=== PATIENT | female | born 1980 | race Caucasian/White ===

== ENCOUNTER 2023-05-22 17:12 | Inpatient (IN) | payer BC ==
[~2023-05-22] VITALS: Ht 160 cm; Wt 59.0 kg
[2023-05-22 17:49] VITALS: BP 121/76; PULSE 81; RESP 18; TEMP 99.2; O2SAT 100
[2023-05-22 18:36] LABS: BASOPHILS % (AUTO) 0.1 % (0.0-2.0); EOSINOPHILS % (AUTO) 0.1 % (0.0-4.0); HEMATOCRIT 41.3 % (36-48); HEMOGLOBIN 14.2 g/dL (12.0-16.0); LYMPHOCYTES # (AUTO) 2.7 K/uL (2.5-16.5); LYMPHOCYTES % (AUTO) 11.6 % (20.5-51.1); MEAN CORPUSCULAR HEMOGLOBIN 30 pg (27-31); MEAN CORPUSCULAR HGB CONC 34 g/dL (33-37); MEAN CORPUSCULAR VOLUME 88.3 fL (80-94); MONOCYTES # (AUTO) 1.3 K/uL (0.8-1.0); MONOCYTES % (AUTO) 5.6 % (1.7-9.3); NEUTROPHILS # (AUTO) 19.2 K/uL (1.8-7.7); NEUTROPHILS % (AUTO) 82.6 % (42.2-75.2); PLATELET COUNT (AUTO) 349 K/uL (140-450); RED BLOOD CELL COUNT(AUTO) 4.67 MIL/uL (4.20-5.40); RED CELL DISTRIBUTION WIDTH 13.7 % (11.6-13.7); WHITE BLOOD COUNT (AUTO) 23.2 K/uL (4.8-10.8)
[2023-05-22 18:45] LABS: ANION GAP 12.4 (8-16); CALCIUM 9.2 mg/dL (8.5-10.1); CARBON DIOXIDE 30.7 mmol/L (21-32); CREATININE 0.7 mg/dL (0.6-1.3); POTASSIUM 3.1 mmol/L (3.5-5.1)
[2023-05-22 18:57] LABS: BILIRUBIN,DIRECT 0.3 mg/dL (0.0-0.3)
[2023-05-22 19:32] LABS: TOTAL BILIRUBIN 0.6 mg/dL (0.0-1.0)
[2023-05-22] MEDS ORDERED: ONDANSETRON 4 MG/2 ML VIAL IVP ONE (19:40)
[2023-05-22] MEDS ORDERED: MORPHINE SULFATE 4 MG/ML SYR IVP ONE (19:40)
[2023-05-22] MEDS ORDERED: NACL 0.9% 1,000 ML IV ONE ×2 (19:40→21:10)
[2023-05-22] MEDS ORDERED: MORPHINE SULFATE 4 MG/ML SYR ONE (20:54)
[2023-05-22] MEDS ORDERED: ONDANSETRON 4 MG/2 ML VIAL ONE (20:55)
[2023-05-22] MEDS ORDERED: ACETAMINOPHEN 325 MG TAB PO PRN (21:20)
[2023-05-22] MEDS ORDERED: ONDANSETRON 4 MG/2 ML VIAL IVP PRN (21:20)
[2023-05-22] MEDS ORDERED: MAG SULF 2000 MG/WATER PREMIX 50 ML IV PRN (21:20)
[2023-05-22] MEDS ORDERED: LORazepam 2 MG/ML VIAL IVP PRN (21:20)
[2023-05-22] MEDS ORDERED: DOCUSATE SODIUM 100 MG GELCAP PO PRN (21:20)
[2023-05-22] MEDS ORDERED: MORPHINE SULFATE 2 MG/ML SYR IVP PRN (21:20)
[2023-05-22] MEDS ORDERED: ENALAPRILAT 2.5 MG/2 ML VIAL IVP PRN (21:25)
[2023-05-22 22:41] VITALS: O2SAT 99
[2023-05-23] VITALS (10 sets, daily range): BP systolic 144; BP diastolic 82; PULSE 74; RESP 18; TEMP 97.6; O2SAT 96–98
[2023-05-23] MEDS ORDERED: DEXTROSE 50% 50 ML SYR IVP PRN (02:25)
[2023-05-23] MEDS: BLOOD GLUCOSE MONITORING 1 DEV DEV FS SCH ×12 (03:25→16:58)
[2023-05-23 03:28] LABS: BLOOD GAS BASE EXCESS -1.1 mmol/L (-2.0-2.0); BLOOD GAS HCO3 23.4 mmol/L (22-26); BLOOD GAS PCO2 38.6 mmHg (35-45); BLOOD GAS PO2 74.7 mmHg (75-100)
[2023-05-23 03:29] LABS: BLOOD GAS O2 SAT% 95.3 % (92.0-98.5)
[2023-05-23 04:45] LABS: PHOSPHORUS 4.3 mg/dL (2.5-4.9)
[2023-05-23] MEDS: INSULIN LISPRO SLIDING SCALE 100 UNITS/ML VIAL SUBQ PRN ×2 (04:56→14:15)
[2023-05-23 05:00] LABS: ANION GAP 12.4 (8-16); CALCIUM 8.1 mg/dL (8.5-10.1); CARBON DIOXIDE 26.6 mmol/L (21-32); CREATININE 0.5 mg/dL (0.6-1.3)
[2023-05-23 05:03] LABS: FREE T4 (FREE THYROXINE) 1.05 ng/dL (0.76-1.46); THYROID STIMULATING HORMONE 0.21 uIU/mL (0.34-3.74)
[2023-05-23] MEDS ORDERED: LISI2.5T12 PO (06:50)
[2023-05-23] MEDS ORDERED: SYN.05 PO (06:50)
[2023-05-23] MEDS ORDERED: NACL 0.9% 1,000 ML IV SCH (08:40)
[2023-05-23] MEDS ORDERED: POTASSIUM CHLORIDE 20 MEQ in LACTATED RINGERS 1,000 ML IV SCH (13:40)
[2023-05-23 14:13] LABS: ALBUMIN 3.3 g/dL (3.4-5.0); BILIRUBIN,DIRECT 0.1 mg/dL (0.0-0.3); TOTAL BILIRUBIN 0.6 mg/dL (0.0-1.0); TOTAL PROTEIN, SERUM 7.6 g/dL (6.4-8.2)
[2023-05-23] MEDS: LACTATED RINGERS 1,000 ML IV SCH ×2 (14:36→21:16)
[2023-05-23] MEDS ORDERED: PIPERACILLIN/TAZOBACTAM 3.375 GM VIAL IV ONE (21:26)
[2023-05-23] MEDS: FAMOTIDINE 20 MG/2 ML VIAL IV SCH (21:28)
[2023-05-23] MEDS: PIPERACILLIN/TAZOBACTAM 3.375 GM in DEXTROSE 5% 50 ML IV SCH (21:29)
[2023-05-24 04:00] VITALS: BP 136/78; PULSE 74; RESP 16; TEMP 97.1; O2SAT 96
[2023-05-24] MEDS: LACTATED RINGERS 1,000 ML IV SCH ×3 (04:19→11:24)
[2023-05-24] MEDS ORDERED: PIPERACILLIN/TAZOBACTAM 3.375 GM VIAL IV ONE (05:14)
[2023-05-24] MEDS: PIPERACILLIN/TAZOBACTAM 3.375 GM in DEXTROSE 5% 50 ML IV SCH ×3 (05:29→20:51)
[2023-05-24 06:36] LABS: BASOPHILS % (AUTO) 0.2 % (0.0-2.0); EOSINOPHILS # (AUTO) 0.1 K/uL (0-0.4); EOSINOPHILS % (AUTO) 0.6 % (0.0-4.0); HEMATOCRIT 35.1 % (36-48); HEMOGLOBIN 11.9 g/dL (12.0-16.0); LYMPHOCYTES # (AUTO) 2.6 K/uL (2.5-16.5); LYMPHOCYTES % (AUTO) 22.6 % (20.5-51.1); MEAN CORPUSCULAR HEMOGLOBIN 30 pg (27-31); MEAN CORPUSCULAR HGB CONC 34 g/dL (33-37); MEAN CORPUSCULAR VOLUME 89.1 fL (80-94); MONOCYTES # (AUTO) 0.7 K/uL (0.8-1.0); MONOCYTES % (AUTO) 6.3 % (1.7-9.3); NEUTROPHILS # (AUTO) 8.2 K/uL (1.8-7.7); NEUTROPHILS % (AUTO) 70.3 % (42.2-75.2); PLATELET COUNT (AUTO) 264 K/uL (140-450); RED BLOOD CELL COUNT(AUTO) 3.94 MIL/uL (4.20-5.40); RED CELL DISTRIBUTION WIDTH 13.9 % (11.6-13.7); WHITE BLOOD COUNT (AUTO) 11.6 K/uL (4.8-10.8)
[2023-05-24 07:26] LABS: ALBUMIN 2.8 g/dL (3.4-5.0); ANION GAP 12.3 (8-16); CALCIUM 8.1 mg/dL (8.5-10.1); CREATININE 0.3 mg/dL (0.6-1.3); POTASSIUM 3.3 mmol/L (3.5-5.1); TOTAL BILIRUBIN 1.1 mg/dL (0.0-1.0)
[2023-05-24 08:00] VITALS: BP 133/75; PULSE 85; RESP 18; TEMP 98; O2SAT 98
[2023-05-24] MEDS: lisinopriL 5 MG TAB PO SCH (08:37)
[2023-05-24] MEDS: FAMOTIDINE 20 MG/2 ML VIAL IV SCH ×2 (08:38→20:50)
[2023-05-24] MEDS ORDERED: ENOXAPARIN 40 MG/0.4 ML SYR SUBQ SCH (09:00)
[2023-05-24] MEDS ORDERED: DEXTROSE 50% 50 ML SYR IVP PRN (10:55)
[2023-05-24] MEDS: POTASSIUM CHLORIDE 10 MEQ TABER PO PRN (10:57)
[2023-05-24] MEDS: BLOOD GLUCOSE MONITORING 1 DEV DEV FS SCH ×3 (11:30→20:15)
[2023-05-24] MEDS: INSULIN LISPRO SLIDING SCALE 100 UNITS/ML VIAL SUBQ PRN (12:24)
[2023-05-24 14:39] LABS: HEMOGLOBIN A1C 6.5 % (4.8-5.6)
[2023-05-24 16:00] VITALS: BP 128/68; PULSE 78; RESP 18; TEMP 98.5; O2SAT 98
[2023-05-24 20:00] VITALS: BP 104/60; PULSE 85; RESP 18; TEMP 98.2; O2SAT 96
[2023-05-25] MEDS: LACTATED RINGERS 1,000 ML IV SCH ×2 (02:50→22:08)
[2023-05-25 04:00] VITALS: BP 112/59; PULSE 84; RESP 18; TEMP 97.2; O2SAT 94
[2023-05-25] MEDS: PIPERACILLIN/TAZOBACTAM 3.375 GM in DEXTROSE 5% 50 ML IV SCH ×3 (04:55→22:06)
[2023-05-25] MEDS: BLOOD GLUCOSE MONITORING 1 DEV DEV FS SCH ×4 (06:34→21:50)
[2023-05-25 07:45] LABS: BASOPHILS # (AUTO) 0.1 K/uL (0.00-0.22); BASOPHILS % (AUTO) 0.5 % (0.0-2.0); EOSINOPHILS # (AUTO) 0.1 K/uL (0-0.4); EOSINOPHILS % (AUTO) 0.7 % (0.0-4.0); HEMATOCRIT 32.1 % (36-48); HEMOGLOBIN 10.8 g/dL (12.0-16.0); LYMPHOCYTES # (AUTO) 2.5 K/uL (2.5-16.5); MEAN CORPUSCULAR HEMOGLOBIN 30 pg (27-31); MEAN CORPUSCULAR HGB CONC 34 g/dL (33-37); MEAN CORPUSCULAR VOLUME 89.4 fL (80-94); MONOCYTES # (AUTO) 0.9 K/uL (0.8-1.0); NEUTROPHILS # (AUTO) 9.1 K/uL (1.8-7.7); NEUTROPHILS % (AUTO) 71.8 % (42.2-75.2); PLATELET COUNT (AUTO) 267 K/uL (140-450); RED BLOOD CELL COUNT(AUTO) 3.59 MIL/uL (4.20-5.40); RED CELL DISTRIBUTION WIDTH 13.3 % (11.6-13.7); WHITE BLOOD COUNT (AUTO) 12.7 K/uL (4.8-10.8)
[2023-05-25 07:48] LABS: ALBUMIN 2.8 g/dL (3.4-5.0); ANION GAP 14.6 (8-16); CALCIUM 8.7 mg/dL (8.5-10.1); CARBON DIOXIDE 24.9 mmol/L (21-32); CREATININE 0.3 mg/dL (0.6-1.3); POTASSIUM 3.5 mmol/L (3.5-5.1); TOTAL PROTEIN, SERUM 6.3 g/dL (6.4-8.2)
[2023-05-25 08:00] VITALS: PULSE 85; RESP 18; O2SAT 98
[2023-05-25] MEDS: FAMOTIDINE 20 MG/2 ML VIAL IV SCH ×2 (08:19→22:03)
[2023-05-25] MEDS: lisinopriL 5 MG TAB PO SCH (08:19)
[2023-05-25 10:19] LABS: T4 (THYROXINE) 13.3 ug/dL (4.5 - 12.0)
[2023-05-25 16:00] VITALS: BP 110/69; PULSE 75; RESP 18; TEMP 98; O2SAT 96
[2023-05-25 18:17] VITALS: O2SAT 97
[2023-05-25 20:00] VITALS: PULSE 78; RESP 18; O2SAT 97
[2023-05-26] VITALS: BP 110/69; PULSE 78; RESP 18; TEMP 98; O2SAT 97
[2023-05-26] MEDS: ZOLPIDEM 10 MG TAB PO PRN (01:55)
[2023-05-26] MEDS: PIPERACILLIN/TAZOBACTAM 3.375 GM in DEXTROSE 5% 50 ML IV SCH ×3 (05:05→22:27)
[2023-05-26 06:23] LABS: BASOPHILS % (AUTO) 0.3 % (0.0-2.0); EOSINOPHILS # (AUTO) 0.2 K/uL (0-0.4); EOSINOPHILS % (AUTO) 1.3 % (0.0-4.0); HEMATOCRIT 30.2 % (36-48); HEMOGLOBIN 10.3 g/dL (12.0-16.0); LYMPHOCYTES # (AUTO) 2.8 K/uL (2.5-16.5); LYMPHOCYTES % (AUTO) 24.3 % (20.5-51.1); MEAN CORPUSCULAR HEMOGLOBIN 30 pg (27-31); MEAN CORPUSCULAR HGB CONC 34 g/dL (33-37); MEAN CORPUSCULAR VOLUME 89.1 fL (80-94); MONOCYTES # (AUTO) 0.8 K/uL (0.8-1.0); MONOCYTES % (AUTO) 6.8 % (1.7-9.3); NEUTROPHILS # (AUTO) 7.6 K/uL (1.8-7.7); NEUTROPHILS % (AUTO) 67.3 % (42.2-75.2); PLATELET COUNT (AUTO) 259 K/uL (140-450); RED BLOOD CELL COUNT(AUTO) 3.39 MIL/uL (4.20-5.40); RED CELL DISTRIBUTION WIDTH 13.3 % (11.6-13.7); WHITE BLOOD COUNT (AUTO) 11.4 K/uL (4.8-10.8)
[2023-05-26] MEDS: BLOOD GLUCOSE MONITORING 1 DEV DEV FS SCH ×4 (06:34→22:29)
[2023-05-26 06:52] LABS: ALBUMIN 2.7 g/dL (3.4-5.0); ANION GAP 11.3 (8-16); CALCIUM 8.3 mg/dL (8.5-10.1); CARBON DIOXIDE 27.1 mmol/L (21-32); CREATININE 0.4 mg/dL (0.6-1.3); POTASSIUM 3.4 mmol/L (3.5-5.1); TOTAL BILIRUBIN 0.7 mg/dL (0.0-1.0); TOTAL PROTEIN, SERUM 7.1 g/dL (6.4-8.2)
[2023-05-26 06:55] LABS: INR 0.99 (0.8-1.2); PARTIAL THROMBOPLASTIN TIME 29.9 secs (22-35.6); PROTHROMBIN TIME 10.4 secs (10.8-13.4)
[2023-05-26 08:00] VITALS: BP 118/73; PULSE 68; PULSE 76; RESP 18; TEMP 98.7; O2SAT 97; O2SAT 98
[2023-05-26] MEDS: FAMOTIDINE 20 MG/2 ML VIAL IV SCH ×2 (08:49→22:27)
[2023-05-26] MEDS: lisinopriL 5 MG TAB PO SCH (08:59)
[2023-05-26] MEDS ORDERED: BUPIVACAINE-MPF 0.5% 10 ML VIAL INJ ONE (12:32)
[2023-05-26] MEDS ORDERED: LIDOCAINE/EPI 1% 1:100000 20 ML VIAL INJ ONE (12:32)
[2023-05-26] MEDS ORDERED: MIDAZOLAM 2 MG/2 ML VIAL ONE (12:52)
[2023-05-26] MEDS ORDERED: SUCCINYLCHOLINE CHLORIDE 200 MG/10 ML VIAL IVP ONE (12:53)
[2023-05-26] MEDS ORDERED: fentaNYL citrate 0.05 MG/ML VIAL ONE ×2 (12:53→14:31)
[2023-05-26] MEDS ORDERED: DEXAMETHASONE 4 MG/ML VIAL ONE (12:54)
[2023-05-26] MEDS ORDERED: PROPOFOL 200 MG/20 ML VIAL IV ONE (12:54)
[2023-05-26] MEDS ORDERED: ROCURONIUM 50 MG/5 ML VIAL IV ONE (12:54)
[2023-05-26] MEDS ORDERED: ONDANSETRON 4 MG/2 ML VIAL ONE (12:54)
[2023-05-26] MEDS ORDERED: DESFLURANE 240 ML BTL INH ONE (13:41)
[2023-05-26] MEDS ORDERED: ceFAZolin 1,000 MG VIAL ONE ×2 (14:12)
[2023-05-26] MEDS ORDERED: SUGAMMADEX SODIUM 200 MG/2 ML VIAL IV ONE (14:47)
[2023-05-26] MEDS ORDERED: ACETAMINOPHEN 100 ML IV ONE (15:04)
[2023-05-26] MEDS ORDERED: HYDROmorphone 1 MG/ML AMP IVP PRN (15:15)
[2023-05-26] MEDS ORDERED: ONDANSETRON 4 MG/2 ML VIAL IVP PRN (15:15)
[2023-05-26] MEDS ORDERED: MEPERIDINE 25 MG/ML SYR IVP PRN (15:15)
[2023-05-26] MEDS ORDERED: LACTATED RINGERS 1,000 ML IV SCH (15:15)
[2023-05-26] MEDS ORDERED: ACETAMINOPHEN 100 ML IV PRN (15:15)
[2023-05-26] MEDS: INSULIN LISPRO SLIDING SCALE 100 UNITS/ML VIAL SUBQ PRN ×3 (15:40→22:32)
[2023-05-26 16:00] VITALS: BP 159/87; PULSE 68; RESP 16; TEMP 97.1; O2SAT 96
[2023-05-26] MEDS: LACTATED RINGERS 1,000 ML IV SCH (17:51)
[2023-05-26] MEDS: POTASSIUM CHLORIDE 10 MEQ TABER PO PRN (19:31)
[2023-05-26 20:00] VITALS: PULSE 84; RESP 18; O2SAT 97
[2023-05-26 20:30] VITALS: BP 140/82; PULSE 84; RESP 18; TEMP 98; O2SAT 96
[2023-05-26] MEDS: MORPHINE SULFATE 2 MG/ML SYR IVP PRN (20:32)
[2023-05-27] MEDS: ZOLPIDEM 10 MG TAB PO PRN (00:08)
[2023-05-27] MEDS: PIPERACILLIN/TAZOBACTAM 3.375 GM in DEXTROSE 5% 50 ML IV SCH (06:20)
[2023-05-27] MEDS: BLOOD GLUCOSE MONITORING 1 DEV DEV FS SCH ×2 (06:27→11:33)
[2023-05-27 06:35] LABS: BASOPHILS % (AUTO) 0.1 % (0.0-2.0); EOSINOPHILS % (AUTO) 0.1 % (0.0-4.0); HEMATOCRIT 33.1 % (36-48); HEMOGLOBIN 11.5 g/dL (12.0-16.0); LYMPHOCYTES # (AUTO) 2.2 K/uL (2.5-16.5); MEAN CORPUSCULAR HEMOGLOBIN 31 pg (27-31); MEAN CORPUSCULAR HGB CONC 35 g/dL (33-37); MEAN CORPUSCULAR VOLUME 88.2 fL (80-94); MONOCYTES # (AUTO) 0.8 K/uL (0.8-1.0); MONOCYTES % (AUTO) 6.8 % (1.7-9.3); NEUTROPHILS # (AUTO) 8.4 K/uL (1.8-7.7); PLATELET COUNT (AUTO) 314 K/uL (140-450); RED BLOOD CELL COUNT(AUTO) 3.75 MIL/uL (4.20-5.40); RED CELL DISTRIBUTION WIDTH 13.4 % (11.6-13.7); WHITE BLOOD COUNT (AUTO) 11.4 K/uL (4.8-10.8)
[2023-05-27] MEDS: MORPHINE SULFATE 2 MG/ML SYR IVP PRN (06:53)
[2023-05-27 07:17] LABS: ALBUMIN 3.1 g/dL (3.4-5.0); ANION GAP 17.5 (8-16); CALCIUM 9.3 mg/dL (8.5-10.1); CARBON DIOXIDE 25.4 mmol/L (21-32); CREATININE 0.3 mg/dL (0.6-1.3); POTASSIUM 3.9 mmol/L (3.5-5.1); TOTAL PROTEIN, SERUM 7.5 g/dL (6.4-8.2)
[2023-05-27] MEDS: LACTATED RINGERS 1,000 ML IV SCH (07:52)
[2023-05-27 08:00] VITALS: BP 141/73; PULSE 67; RESP 18; TEMP 97.8; O2SAT 96
[2023-05-27] MEDS: FAMOTIDINE 20 MG/2 ML VIAL IV SCH (08:55)
[2023-05-27] MEDS: lisinopriL 5 MG TAB PO SCH (09:06)
[2023-05-27 10:41] LABS: TOTAL BILIRUBIN 0.6 mg/dL (0.0-1.0)
[2023-05-27] MEDS ORDERED: HYDR-5080 PO (11:52)
[2023-05-27] MEDS ORDERED: CIPR500T4 PO (11:52)
[2023-05-27] MEDS ORDERED: METR-435 PO (11:52)
== END 2023-05-27 13:20 | disposition home or self-care (01) | DRG 418 ==
LOC: MED 17:12 → MMU 20:11 → MTU 05-23 18:51
PROVIDERS: ADMIT Family Medicine; ATTEND Family Medicine
PROC: 0FT44ZZ Resection of Gallbladder, Percutaneous Endoscopic Approach (ICD-10-PCS; principal; 2023-05-26 13:00)
DX: K85.10 Biliary acute pancreatitis without necrosis or infection (principal); K80.10 Calculus of gallbladder with chronic cholecystitis without obstruction; R65.10 Systemic inflammatory response syndrome (SIRS) of non-infectious origin without acute organ dysfunction; K83.09 Other cholangitis; E11.65 Type 2 diabetes mellitus with hyperglycemia; E87.6 Hypokalemia; K76.0 Fatty (change of) liver, not elsewhere classified; E78.5 Hyperlipidemia, unspecified; I10 Essential (primary) hypertension; E03.9 Hypothyroidism, unspecified; E21.3 Hyperparathyroidism, unspecified
CPT/HCPCS: 36415; 36600; 71045; 76705; 80048; 80053; 80076; 82803; 82948; 83036; 83690; 83735; 84100; 84436; 84439; 84443; 84479; 85025; 85610; 85730; 87081; 88304; 93005; 96361; 96374; 96375; 99285; J0330; J0690; J1100; J1170; J2001; J2250; J2270; J2405; J2543; J2704; J3010; J3490; J7060; J7120; Q0092